=== PATIENT | female | born 1970 | race Hispanic/Latino ===

== ENCOUNTER 2018-08-18 15:15 | Emergency (ER) | payer OTHER ==
[2018-08-18 15:31] VITALS: BP 122/82
--- NOTE | 2018-08-18 15:35 | Emergency Department Report ---
Chief Complaint: Back Pain/Injury Stated Complaint: LOWER BACK PAIN Time Seen by Provider: 08/18/18 15:31 - HPI History of Present Illness: This is a 48 y.o. female that presents with back pain since . She was trying to put a post under 5 foot deck and think she possibly twisted her back. Denies change in urinary or bowel pattern. - Exam Vital Signs: Vital Signs 08/18/18 15:28 Temperature 98.2 F Pulse Rate 75 Respiratory 20 Rate Blood Pressure 122/82 O2 Sat by Pulse 98 Oximetry MSE screening note: Focused history and physical exam performed. Due to findings the following was ordered: Urinalysis and XR of L-spine ED Disposition for MSE Condition: Stable
--- NOTE | 2018-08-18 16:52 | XRay Report ---
PROCEDURE: XR SPINE LUMBOSACRAL 2-3V TECHNIQUE: 3 views of the lumbar spine HISTORY: low back pain COMPARISONS: None. FINDINGS: There is normal alignment without acute fracture or dislocation. Mild intervertebral disc space narro wing at L5-S1. The vertebral body heights are maintained. The posterior elements are intact. The para vertebral soft tissues are normal. IMPRESSION: Minimal degenerative changes at L5-S1. No acute fracture or dislocation. This document is electronically signed by Gayle Jo MD., Aug 18 2018 04:50:37 PM ET
--- NOTE | 2018-08-18 17:00 | Emergency Department Report ---
HPI - General Chief Complaint: Back Pain/Injury Time Seen by Provider: 08/18/18 15:31 - HPI HPI: This is a 48-year-old female who presents to ED complaining of acute on chronic back pain since she had a injury on . Patient states that she was lif ting of boxes when she accidentally twisted in the wrong position and hurt her lower back. Patient states she's been having pain since then. Patient states that the pain got worse today where she was unable to sit because sitting makes the pain worse. Denies dysuria, trauma or injuries to the back. ED Past Medical Hx - Past Medical History Previous Medical History?: Yes Additional medical history: restless leg syndrome - Surgical History Past Surgical History?: Yes Additional Surgical History: breast reduction - Social History Smoking Status: Current Every Day Smoker Substance Use Type: None - Medications Home Medications: Home Medications Medication Instructions Recorded Confirmed Last Taken Type HYDROcodone/APAP 5-325 [Tarpley 1 each PO Q6H #10 tablet 08/18/18 Unknown Rx 5-325 mg TAB] Ibuprofen [Motrin] 800 mg PO Q8HR #30 tablet 08/18/18 Unknown Rx ED Review of Systems ROS: Stated complaint: LOWER BACK PAIN Other details as noted in HPI Comment: All other systems reviewed and negative Physical Exam - Physical Exam Vital Signs: Vital Signs 08/18/18 15:28 Temperature 98.2 F Pulse Rate 75 Respiratory 20 Rate Blood Pressure 122/82 O2 Sat by Pulse 98 Oximetry Physical Exam: GENERAL: Alert and oriented x3, no apparent distress, Normal Gait, atraumatic. HEAD: Head is normocephalic and a-traumatic. NECK: Supple. Non edematous, No lymphadenopathy or thyromegaly. No C-spine tenderness, full range of motion LUNGS: Symetrical with respiration, No wheezing, no rales or crackles, CTAB. HEART: S1, S2 present, regular rate and rhythm without murmur, no rubs, no gallops. Non tender to palpation BACK: Full range of motion, no spinal tenderness, Tenderness to palpation of the trapezius muscles and latissimus dorsi muscles of the back EXTREMITIES/MUSCULOSKELETAL: No cyanosis, clubbing, rash, lesions or edema. Full ROM bilaterally. UE/LE Pulses 2+ bilaterally. LE and UE 5+ strength bilaterally, NEUROLOGIC: The patient is cooperative with no focal neurologic deficits. SKIN: Warm and dry, No lesions, No ulceration or induration present. ED Course Vital Signs 08/18/18 15:28 Temperature 98.2 F Pulse Rate 75 Respiratory 20 Rate Blood Pressure 122/82 O2 Sat by Pulse 98 Oximetry ED Medical Decision Making - Medical Decision Making 48-year-old female presents to ED with lower back pain ED course: Patient received prednisone and Tarpley in ED. Vital signs are normal patient is in no acute distress Discussed with patient follow-up with primary care physician. Discussed the patient and take medications as prescribed. Patient has no neurological deficit. Patient is alert and oriented 3 and understands all instructions given. Discussed drowsiness effect of Flexeril makes her drowsy and not to operate machinery while taking flexeril Critical care attestation.: If time is entered above; I have spent that time in minutes in the direct care of this critically ill patient, excluding procedure time. ED Disposition Clinical Impression: Muscle spasm of back, Low back strain Disposition: - TO HOME OR SELFCARE Is pt being admited?: No Does the pt Need Aspirin: No Condition: Stable Instructions: Muscle Strain (ED), Musculoskeletal Pain (ED), Trigger Point Pain (ED) Additional Instructions: Make sure to follow up with the primary care physician as discussed. Take all your medications as you've been prescribed. If you have any worsening symptoms or develop new symptoms please return to ED immediately. Prescriptions: Ibuprofen [Motrin] 800 mg PO Q8HR #30 tablet HYDROcodone/APAP 5-325 [Tarpley 5-325 mg TAB] 1 each PO Q6H #10 tablet Referrals: JENNIFER PARADADALJIT CORDERO MD [Primary Care Provider] - 3-5 Days YOLANDA CROOKS MD [Staff Physician] - 3-5 Days Forms: Work/School Release Form(ED) Time of Disposition: 17:53
[2018-08-18] MEDS ORDERED: DELTASONE PO ONE (17:18)
[2018-08-18] MEDS ORDERED: NORCO 5/325 PO ONE (17:18)
== END 2018-08-18 18:09 | disposition home or self-care (01) ==
LOC: ED 15:15
DX: S39.012A Strain of muscle, fascia and tendon of lower back, initial encounter (principal); F17.200 Nicotine dependence, unspecified, uncomplicated; X50.0XXA Overexertion from strenuous movement or load, initial encounter; Y93.89 Activity, other specified; Y92.89 Other specified places as the place of occurrence of the external cause; Y99.8 Other external cause status
CPT/HCPCS: 72100; 99283; J7512